=== PATIENT | male | born 1935 | race Caucasian/White ===

== ENCOUNTER 2016-08-03 17:31 | Inpatient (IN) | payer MEDICARE, MEDICAID ==
[~2016-08-03 17:31] MED LIST: ASPIRIN325 MG; GEMFIBROZIL600 MG; HYTRIN10 MG; LASIX20 MG; METAMUCIL1 PKT; MULTIVITAMIN1 TAB; NAPROSYN500 MG; PROSCAR5 MG; STOOL SOFTENER240 MG; ZOCOR10 MG
[2016-08-03 20:26] LABS: ABG CO2 ARTERIAL 39 mmol/L (21-27); ARTERIAL BLD GAS O2 SATURATION 97 % (95-98); ARTERIAL PO2 97 mmHg (70-100); BICARBONATE 37 mmol/L (21-28); BLOOD GAS BASE EXCESS 9 mM/L (-/+3); PH 7.34 Units (7.35-7.45)
[2016-08-03 20:31] LABS: ARTERIAL BLOOD GAS PCO2 72 mmHg (32-45)
[2016-08-03 21:19] LABS: BASO % 0.1 % (0-2); EOS % 0.7 % (0-7); EOSINOPHIL ABSOLUTE COUNT 0.1 tho/cmm (0.0-0.7); HCT-HEMATOCRIT 38.6 % (36.0-53.5); IMMATURE GRANULOCYTES ABSOLUTE 0.03 tho/cmm (0-0.03); IMMATURE GRANULOCYTES PERCENT 0.4 % (0-0.3); LYMPH % 7.1 % (20-45); LYMPH ABSOLUTE COUNT 0.5 tho/cmm (0.8-4.5); MCH (MEAN CORPUSCULAR HGB) 31.3 pg (28.0-32.0); MCHC MEAN CORPUSCULAR HGB CONC 31.1 % (32.0-36.0); MCV (MEAN CELL VOLUME) 100.8 fl (82.0-96.0); MEAN PLATELET VOLUME 9.7 cmc (9.4-12.4); MONO % 1.2 % (0-12); MONOCYTE ABSOLUTE COUNT 0.1 tho/cmm (0.0-1.2); NEUTROPHIL ABSOLUTE COUNT 6.2 tho/cmm (1.6-8.0); NEUTROPHIL-AUTOMATED 6.2 tho/cmm (1.6-8.0); NEUTROPHILS % 90.5 % (40-80); PLATELET COUNT 230 tho/cmm (150-450); RED BLOOD COUNT 3.83 mil/cmm (4.40-5.70); RED CELL DISTRIBUTION WIDTH 14.1 % (12.4-16.4); WHITE BLOOD COUNT 6.9 tho/cmm (4.0-10.0)
[2016-08-03 21:28] LABS: URINE BILIRUBIN NEGATIVE (NEG); URINE BLOOD NEGATIVE (NEG); URINE GLUCOSE (UA) NEGATIVE (NEG); URINE KETONE NEGATIVE (NEG); URINE LEUKOCYTE ESTERASE NEGATIVE (NEG); URINE NITRITE NEGATIVE (NEG); URINE PROTEIN NEGATIVE (NEG)
[2016-08-03 21:38] LABS: ALB/GLOB RATIO 0.7 (0.8-2.0); ALBUMIN 3.2 g/dl (3.5-5.0); ALKALINE PHOSPHATASE 74 U/L (33-138); ALT/SGPT 17 U/L (12-78); BILIRUBIN,TOTAL 0.4 mg/dl (0.0-1.5); BLOOD UREA NITROGEN 22 mg/dl (6-24); CALCIUM 8.4 mg/dl (8.5-10.5); CARBON DIOXIDE-VENOUS 38 mmol/L (22-32); CHLORIDE 94 mmol/l (96-110); GLUCOSE 201 mg/dL (70-110); SODIUM 138 mmol/L (135-145); eGFR VALUE FOR BLACK >90 mL/Min
[2016-08-03 21:44] LABS: ANION GAP 11 mmol/L (0-20); AST/SGOT 27 U/L (10-40); MAGNESIUM 2.4 mg/dl (1.3-2.6); POTASSIUM 4.9 mmol/L (3.7-5.1)
[2016-08-03 21:44] LABS: URINE COLOR YELLOW
[2016-08-03 21:45] LABS: URINE APPEARANCE HAZY
[2016-08-03] MEDS ORDERED: ZEBETA5 M2 PO (22:17)
[2016-08-03] MEDS ORDERED: BISCOLAX10 MG PO (22:17)
[2016-08-03] MEDS ORDERED: ASPIRIN81 M1 PO (22:17)
[2016-08-03] MEDS ORDERED: CARDIZEM CD120 M1 PO (22:18)
[2016-08-03] MEDS ORDERED: OS-CAL 500+D31 EAC1 PO (22:18)
[2016-08-03] MEDS ORDERED: IPRAT-ALBUT 0.5-3 ML AERO NEB (22:20)
[2016-08-03] MEDS ORDERED: ELIQUIS5 M1 PO (22:20)
[2016-08-03] MEDS ORDERED: [UNRECOGNIZED DRUG - CODE] PO (22:21)
[2016-08-03] MEDS ORDERED: LASIX40 M1 PO (22:21)
[2016-08-03] MEDS ORDERED: ATROVENT HFA1 PUFF (22:23)
[2016-08-03] MEDS ORDERED: LANTUS100 UNITS/ SC (22:24)
[2016-08-03] MEDS ORDERED: POTASSIUM CHLO20 ME3 PO (22:24)
[2016-08-03] MEDS ORDERED: CLARITIN10 M6 PO (22:25)
[2016-08-03] MEDS ORDERED: GLUCOPHAGE500 M3 PO (22:25)
[2016-08-03] MEDS ORDERED: MILK OF MAGNESIA PO (22:26)
[2016-08-03] MEDS ORDERED: POLYETHYLENE G255 G1 PO (22:26)
[2016-08-03] MEDS ORDERED: PREDNISONE5 M1 PO (22:27)
[2016-08-03] MEDS ORDERED: PRAVASTATIN SOD10 M1 PO (22:27)
[2016-08-03] MEDS ORDERED: PROVENTIL HFA6.7 G1 AERO NEB (22:28)
[2016-08-03] MEDS ORDERED: ACID CONTROL150 M2 PO (22:28)
[2016-08-03] MEDS ORDERED: SYMBICORT 160-1 PUFF INH (22:29)
[2016-08-03] MEDS ORDERED: SENNA PLUS TAB1 EAC1 PO (22:29)
[2016-08-03] MEDS ORDERED: SYSTANE 0.3-0.1 EACH OP (22:30)
[2016-08-03] MEDS ORDERED: TYLENOL325 M2 PO (22:31)
[2016-08-03 22:38] LABS: ARTERIAL BLD GAS O2 SATURATION 99 % (95-98); ARTERIAL BLOOD GAS PCO2 69 mmHg (32-45); BICARBONATE 37 mmol/L (21-28); BLOOD GAS BASE EXCESS 9 mM/L (-/+3); PH 7.35 Units (7.35-7.45)
[2016-08-03 22:39] LABS: ABG CO2 ARTERIAL 33 mmol/L (21-27); ARTERIAL PO2 158 mmHg (70-100)
[2016-08-04 05:14] LABS: ANION GAP 10 mmol/L (0-20); BLOOD UREA NITROGEN 24 mg/dl (6-24); CALCIUM 8.6 mg/dl (8.5-10.5); CARBON DIOXIDE-VENOUS 39 mmol/L (22-32); CHLORIDE 94 mmol/l (96-110); GLUCOSE 194 mg/dL (70-110); POTASSIUM 4.3 mmol/L (3.7-5.1); SODIUM 139 mmol/L (135-145); eGFR VALUE FOR BLACK >90 mL/Min
[2016-08-04 05:16] LABS: BASO % 0.2 % (0-2); HCT-HEMATOCRIT 39.3 % (36.0-53.5); IMMATURE GRANULOCYTES ABSOLUTE 0.02 tho/cmm (0-0.03); IMMATURE GRANULOCYTES PERCENT 0.3 % (0-0.3); LYMPH ABSOLUTE COUNT 0.6 tho/cmm (0.8-4.5); MCH (MEAN CORPUSCULAR HGB) 30.8 pg (28.0-32.0); MCHC MEAN CORPUSCULAR HGB CONC 30.5 % (32.0-36.0); MONO % 1.2 % (0-12); MONOCYTE ABSOLUTE COUNT 0.1 tho/cmm (0.0-1.2); NEUTROPHILS % 87.3 % (40-80); PLATELET COUNT 252 tho/cmm (150-450); RED BLOOD COUNT 3.89 mil/cmm (4.40-5.70); RED CELL DISTRIBUTION WIDTH 14.1 % (12.4-16.4); WHITE BLOOD COUNT 5.7 tho/cmm (4.0-10.0)
[2016-08-04 05:56] LABS: ARTERIAL BLD GAS O2 SATURATION 99 % (95-98); ARTERIAL PO2 151 mmHg (70-100); BICARBONATE 40 mmol/L (21-28); BLOOD GAS BASE EXCESS 11 mM/L (-/+3); PH 7.29 Units (7.35-7.45)
[2016-08-04 05:59] LABS: ARTERIAL BLOOD GAS PCO2 87 mmHg (32-45)
[2016-08-04 06:01] LABS: ABG CO2 ARTERIAL 43 mmol/L (21-27)
[2016-08-04 07:58] LABS: ABG CO2 ARTERIAL 41 mmol/L (21-27); ARTERIAL BLD GAS O2 SATURATION 96 % (95-98); ARTERIAL PO2 91 mmHg (70-100); BICARBONATE 39 mmol/L (21-28); BLOOD GAS BASE EXCESS 11 mM/L (-/+3); PH 7.36 Units (7.35-7.45)
[2016-08-04 08:01] LABS: ARTERIAL BLOOD GAS PCO2 71 mmHg (32-45)
[2016-08-04 12:20] LABS: ABG CO2 ARTERIAL 41 mmol/L (21-27); ARTERIAL BLD GAS O2 SATURATION 85 % (95-98); ARTERIAL BLOOD GAS PCO2 69 mmHg (32-45); ARTERIAL PO2 54 mmHg (70-100); BICARBONATE 39 mmol/L (21-28); BLOOD GAS BASE EXCESS 11 mM/L (-/+3); PH 7.37 Units (7.35-7.45)
[2016-08-04 14:13] LABS: ARTERIAL BLOOD GAS PCO2 61 mmHg (32-45); BICARBONATE 39 mmol/L (21-28); BLOOD GAS BASE EXCESS 13 mM/L (-/+3); PH 7.42 Units (7.35-7.45)
[2016-08-04 14:14] LABS: ABG CO2 ARTERIAL 41 mmol/L (21-27); ARTERIAL BLD GAS O2 SATURATION 96 % (95-98); ARTERIAL PO2 78 mmHg (70-100)
[2016-08-05 04:40] LABS: HCT-HEMATOCRIT 38.7 % (36.0-53.5); HGB-HEMOGLOBIN 12.2 gm/dl (13.5-17.0); IMMATURE GRANULOCYTES ABSOLUTE 0.02 tho/cmm (0-0.03); IMMATURE GRANULOCYTES PERCENT 0.4 % (0-0.3); LYMPH % 10.2 % (20-45); LYMPH ABSOLUTE COUNT 0.6 tho/cmm (0.8-4.5); MCHC MEAN CORPUSCULAR HGB CONC 31.5 % (32.0-36.0); MCV (MEAN CELL VOLUME) 98.2 fl (82.0-96.0); MEAN PLATELET VOLUME 9.7 cmc (9.4-12.4); MONO % 4.9 % (0-12); MONOCYTE ABSOLUTE COUNT 0.3 tho/cmm (0.0-1.2); NEUTROPHIL ABSOLUTE COUNT 4.6 tho/cmm (1.6-8.0); NEUTROPHIL-AUTOMATED 4.6 tho/cmm (1.6-8.0); NEUTROPHILS % 84.5 % (40-80); PLATELET COUNT 259 tho/cmm (150-450); RED BLOOD COUNT 3.94 mil/cmm (4.40-5.70); RED CELL DISTRIBUTION WIDTH 13.8 % (12.4-16.4); WHITE BLOOD COUNT 5.5 tho/cmm (4.0-10.0)
[2016-08-05 05:03] LABS: ANION GAP 12 mmol/L (0-20); BLOOD UREA NITROGEN 31 mg/dl (6-24); CALCIUM 8.7 mg/dl (8.5-10.5); CARBON DIOXIDE-VENOUS 36 mmol/L (22-32); CHLORIDE 97 mmol/l (96-110); GLUCOSE 237 mg/dL (70-110); POTASSIUM 3.6 mmol/L (3.7-5.1); SODIUM 141 mmol/L (135-145); eGFR VALUE FOR BLACK >90 mL/Min
[2016-08-05 08:59] LABS: ABG CO2 ARTERIAL 37 mmol/L (21-27); ARTERIAL BLD GAS O2 SATURATION 96 % (95-98); ARTERIAL BLOOD GAS PCO2 43 mmHg (32-45); ARTERIAL PO2 82 mmHg (70-100); BICARBONATE 36 mmol/L (21-28); BLOOD GAS BASE EXCESS 12 mM/L (-/+3); PH 7.53 Units (7.35-7.45)
[2016-08-06 04:58] LABS: HCT-HEMATOCRIT 39.7 % (36.0-53.5); HGB-HEMOGLOBIN 12.5 gm/dl (13.5-17.0); IMMATURE GRANULOCYTES ABSOLUTE 0.01 tho/cmm (0-0.03); IMMATURE GRANULOCYTES PERCENT 0.2 % (0-0.3); LYMPH ABSOLUTE COUNT 0.4 tho/cmm (0.8-4.5); MCHC MEAN CORPUSCULAR HGB CONC 31.5 % (32.0-36.0); MCV (MEAN CELL VOLUME) 98.5 fl (82.0-96.0); MEAN PLATELET VOLUME 9.5 cmc (9.4-12.4); MONO % 3.3 % (0-12); MONOCYTE ABSOLUTE COUNT 0.2 tho/cmm (0.0-1.2); NEUTROPHIL ABSOLUTE COUNT 5.4 tho/cmm (1.6-8.0); NEUTROPHIL-AUTOMATED 5.4 tho/cmm (1.6-8.0); NEUTROPHILS % 89.5 % (40-80); PLATELET COUNT 271 tho/cmm (150-450); RED BLOOD COUNT 4.03 mil/cmm (4.40-5.70); RED CELL DISTRIBUTION WIDTH 14.2 % (12.4-16.4)
[2016-08-06 05:04] LABS: ALB/GLOB RATIO 0.7 (0.8-2.0); ALBUMIN 2.8 g/dl (3.5-5.0); ALKALINE PHOSPHATASE 61 U/L (33-138); ALT/SGPT 17 U/L (12-78); ANION GAP 7 mmol/L (0-20); AST/SGOT 18 U/L (10-40); BILIRUBIN,TOTAL 0.3 mg/dl (0.0-1.5); BLOOD UREA NITROGEN 42 mg/dl (6-24); CALCIUM 8.5 mg/dl (8.5-10.5); CARBON DIOXIDE-VENOUS 37 mmol/L (22-32); CHLORIDE 99 mmol/l (96-110); CREATININE 0.86 mg/dl (0.60-1.30); GLUCOSE 262 mg/dL (70-110); POTASSIUM 3.3 mmol/L (3.7-5.1); SODIUM 140 mmol/L (135-145); eGFR VALUE FOR BLACK >90 mL/Min
[2016-08-06 05:26] LABS: TRIGLYCERIDES 340 mg/dl (<149)
[2016-08-06 06:06] LABS: ARTERIAL BLD GAS O2 SATURATION 94 % (95-98); ARTERIAL BLOOD GAS PCO2 47 mmHg (32-45); BICARBONATE 35 mmol/L (21-28); BLOOD GAS BASE EXCESS 11 mM/L (-/+3); PH 7.49 Units (7.35-7.45)
[2016-08-06 06:07] LABS: ABG CO2 ARTERIAL 31 mmol/L (21-27); ARTERIAL PO2 65 mmHg (70-100)
[2016-08-06 06:32] LABS: PROCALCITONIN <0.05 ng/ml (0.05-0.09)
[2016-08-06 14:29] LABS: ABG CO2 ARTERIAL 31 mmol/L (21-27); ARTERIAL BLD GAS O2 SATURATION 95 % (95-98); ARTERIAL BLOOD GAS PCO2 48 mmHg (32-45); BLOOD GAS BASE EXCESS 4 mM/L (-/+3)
[2016-08-06 14:30] LABS: ARTERIAL PO2 78 mmHg (70-100); BICARBONATE 29 mmol/L (21-28)
[2016-08-06 22:46] LABS: BLOOD GAS BASE EXCESS 9 mM/L (-/+3); PH 7.38 Units (7.35-7.45)
[2016-08-06 22:50] LABS: ABG CO2 ARTERIAL 37 mmol/L (21-27); ARTERIAL BLD GAS O2 SATURATION 74 % (95-98); ARTERIAL BLOOD GAS PCO2 61 mmHg (32-45); ARTERIAL PO2 45 mmHg (70-100); BICARBONATE 35 mmol/L (21-28)
[2016-08-07 00:50] LABS: ABG CO2 ARTERIAL 35 mmol/L (21-27); BICARBONATE 34 mmol/L (21-28); BLOOD GAS BASE EXCESS 9 mM/L (-/+3); PH 7.46 Units (7.35-7.45)
[2016-08-07 00:53] LABS: ARTERIAL BLD GAS O2 SATURATION 99 % (95-98); ARTERIAL BLOOD GAS PCO2 48 mmHg (32-45); ARTERIAL PO2 265 mmHg (70-100)
[2016-08-07 04:33] LABS: HCT-HEMATOCRIT 43.5 % (36.0-53.5); HGB-HEMOGLOBIN 13.5 gm/dl (13.5-17.0); IMMATURE GRANULOCYTES ABSOLUTE 0.02 tho/cmm (0-0.03); IMMATURE GRANULOCYTES PERCENT 0.3 % (0-0.3); LYMPH % 5.7 % (20-45); LYMPH ABSOLUTE COUNT 0.4 tho/cmm (0.8-4.5); MCH (MEAN CORPUSCULAR HGB) 30.8 pg (28.0-32.0); MCV (MEAN CELL VOLUME) 99.1 fl (82.0-96.0); MEAN PLATELET VOLUME 9.8 cmc (9.4-12.4); MONO % 5.5 % (0-12); MONOCYTE ABSOLUTE COUNT 0.4 tho/cmm (0.0-1.2); NEUTROPHIL ABSOLUTE COUNT 6.4 tho/cmm (1.6-8.0); NEUTROPHIL-AUTOMATED 6.4 tho/cmm (1.6-8.0); NEUTROPHILS % 88.5 % (40-80); PLATELET COUNT 279 tho/cmm (150-450); RED BLOOD COUNT 4.39 mil/cmm (4.40-5.70); RED CELL DISTRIBUTION WIDTH 14.1 % (12.4-16.4); WHITE BLOOD COUNT 7.2 tho/cmm (4.0-10.0)
[2016-08-07 04:41] LABS: ANION GAP 10 mmol/L (0-20); BLOOD UREA NITROGEN 48 mg/dl (6-24); CALCIUM 8.3 mg/dl (8.5-10.5); CARBON DIOXIDE-VENOUS 35 mmol/L (22-32); CHLORIDE 102 mmol/l (96-110); GLUCOSE 234 mg/dL (70-110); POTASSIUM 3.7 mmol/L (3.7-5.1); SODIUM 143 mmol/L (135-145); eGFR VALUE FOR BLACK >90 mL/Min
[2016-08-07 05:33] LABS: ABG CO2 ARTERIAL 35 mmol/L (21-27); ARTERIAL BLD GAS O2 SATURATION 96 % (95-98); ARTERIAL BLOOD GAS PCO2 45 mmHg (32-45); BICARBONATE 33 mmol/L (21-28); BLOOD GAS BASE EXCESS 9 mM/L (-/+3); PH 7.49 Units (7.35-7.45)
[2016-08-07 05:34] LABS: ARTERIAL PO2 81 mmHg (70-100)
[2016-08-08 03:22] LABS: EOS % 0.1 % (0-7); HCT-HEMATOCRIT 44.6 % (36.0-53.5); HGB-HEMOGLOBIN 14.1 gm/dl (13.5-17.0); IMMATURE GRANULOCYTES ABSOLUTE 0.01 tho/cmm (0-0.03); IMMATURE GRANULOCYTES PERCENT 0.1 % (0-0.3); LYMPH % 10.3 % (20-45); LYMPH ABSOLUTE COUNT 0.8 tho/cmm (0.8-4.5); MCH (MEAN CORPUSCULAR HGB) 31.4 pg (28.0-32.0); MCHC MEAN CORPUSCULAR HGB CONC 31.6 % (32.0-36.0); MCV (MEAN CELL VOLUME) 99.3 fl (82.0-96.0); MEAN PLATELET VOLUME 9.5 cmc (9.4-12.4); MONO % 6.1 % (0-12); MONOCYTE ABSOLUTE COUNT 0.5 tho/cmm (0.0-1.2); NEUTROPHIL ABSOLUTE COUNT 6.2 tho/cmm (1.6-8.0); NEUTROPHIL-AUTOMATED 6.2 tho/cmm (1.6-8.0); NEUTROPHILS % 83.4 % (40-80); PLATELET COUNT 229 tho/cmm (150-450); RED BLOOD COUNT 4.49 mil/cmm (4.40-5.70); RED CELL DISTRIBUTION WIDTH 13.9 % (12.4-16.4); WHITE BLOOD COUNT 7.4 tho/cmm (4.0-10.0)
[2016-08-08 04:00] LABS: ANION GAP 9 mmol/L (0-20); BLOOD UREA NITROGEN 39 mg/dl (6-24); CALCIUM 8.2 mg/dl (8.5-10.5); CARBON DIOXIDE-VENOUS 34 mmol/L (22-32); CHLORIDE 107 mmol/l (96-110); CREATININE 0.92 mg/dl (0.60-1.30); GLUCOSE 313 mg/dL (70-110); POTASSIUM 3.4 mmol/L (3.7-5.1); SODIUM 147 mmol/L (135-145); eGFR VALUE FOR BLACK >90 mL/Min
[2016-08-08 05:36] LABS: ABG CO2 ARTERIAL 33 mmol/L (21-27); ARTERIAL BLD GAS O2 SATURATION 94 % (95-98); ARTERIAL BLOOD GAS PCO2 45 mmHg (32-45); ARTERIAL PO2 73 mmHg (70-100); BICARBONATE 31 mmol/L (21-28); BLOOD GAS BASE EXCESS 7 mM/L (-/+3); PH 7.46 Units (7.35-7.45)
[2016-08-08 14:17] LABS: URINE LEUKOCYTE ESTERASE NEGATIVE (NEG); URINE PROTEIN SMALL (NEG); URINE SPECIFIC GRAVITY 1.015 (1.003-1.030)
[2016-08-08 14:18] LABS: URINE APPEARANCE CLEAR; URINE BILIRUBIN NEGATIVE (NEG); URINE BLOOD MODERATE (NEG); URINE COLOR YELLOW; URINE GLUCOSE (UA) SMALL (NEG); URINE KETONE NEGATIVE (NEG); URINE NITRITE NEGATIVE (NEG)
[2016-08-08 14:34] LABS: URINE AMORPHOUS 1+; URINE EPITHELIAL CELLS RARE /[HPF] (0-10); URINE WBC RARE /[HPF] (0-5)
[2016-08-08 18:24] LABS: PROCALCITONIN <0.05 ng/ml (0.05-0.09)
[2016-08-09 05:20] LABS: ANION GAP 7 mmol/L (0-20); BLOOD UREA NITROGEN 32 mg/dl (6-24); CARBON DIOXIDE-VENOUS 36 mmol/L (22-32); CHLORIDE 112 mmol/l (96-110); CREATININE 0.68 mg/dl (0.60-1.30); POTASSIUM 3.3 mmol/L (3.7-5.1); SODIUM 152 mmol/L (135-145); eGFR VALUE FOR BLACK >90 mL/Min
[2016-08-09 05:25] LABS: EOS % 0.4 % (0-7); HCT-HEMATOCRIT 42.8 % (36.0-53.5); HGB-HEMOGLOBIN 13.1 gm/dl (13.5-17.0); IMMATURE GRANULOCYTES ABSOLUTE 0.01 tho/cmm (0-0.03); IMMATURE GRANULOCYTES PERCENT 0.1 % (0-0.3); LYMPH % 12.6 % (20-45); LYMPH ABSOLUTE COUNT 0.9 tho/cmm (0.8-4.5); MCH (MEAN CORPUSCULAR HGB) 30.8 pg (28.0-32.0); MCHC MEAN CORPUSCULAR HGB CONC 30.6 % (32.0-36.0); MCV (MEAN CELL VOLUME) 100.7 fl (82.0-96.0); MEAN PLATELET VOLUME 9.8 cmc (9.4-12.4); MONO % 7.1 % (0-12); MONOCYTE ABSOLUTE COUNT 0.5 tho/cmm (0.0-1.2); NEUTROPHIL ABSOLUTE COUNT 5.9 tho/cmm (1.6-8.0); NEUTROPHIL-AUTOMATED 5.9 tho/cmm (1.6-8.0); NEUTROPHILS % 79.8 % (40-80); PLATELET COUNT 198 tho/cmm (150-450); RED BLOOD COUNT 4.25 mil/cmm (4.40-5.70); WHITE BLOOD COUNT 7.4 tho/cmm (4.0-10.0)
[2016-08-09 05:35] LABS: GLUCOSE 70 mg/dL (70-110)
[2016-08-09 14:52] LABS: ANION GAP 14 mmol/L (0-20); BLOOD UREA NITROGEN 31 mg/dl (6-24); CALCIUM 8.2 mg/dl (8.5-10.5); CARBON DIOXIDE-VENOUS 29 mmol/L (22-32); CHLORIDE 109 mmol/l (96-110); CREATININE 0.96 mg/dl (0.60-1.30); POTASSIUM 4.1 mmol/L (3.7-5.1); SODIUM 148 mmol/L (135-145); eGFR VALUE FOR BLACK 86 mL/Min
[2016-08-09 14:55] LABS: GLUCOSE 277 mg/dL (70-110)
[2016-08-10 04:19] LABS: EOS % 1.6 % (0-7); EOSINOPHIL ABSOLUTE COUNT 0.1 tho/cmm (0.0-0.7); HCT-HEMATOCRIT 38.2 % (36.0-53.5); HGB-HEMOGLOBIN 11.9 gm/dl (13.5-17.0); IMMATURE GRANULOCYTES ABSOLUTE 0.02 tho/cmm (0-0.03); IMMATURE GRANULOCYTES PERCENT 0.3 % (0-0.3); LYMPH % 15.4 % (20-45); LYMPH ABSOLUTE COUNT 1.2 tho/cmm (0.8-4.5); MCH (MEAN CORPUSCULAR HGB) 30.6 pg (28.0-32.0); MCHC MEAN CORPUSCULAR HGB CONC 31.2 % (32.0-36.0); MCV (MEAN CELL VOLUME) 98.2 fl (82.0-96.0); MEAN PLATELET VOLUME 9.5 cmc (9.4-12.4); MONO % 4.7 % (0-12); MONOCYTE ABSOLUTE COUNT 0.4 tho/cmm (0.0-1.2); NEUTROPHIL ABSOLUTE COUNT 5.9 tho/cmm (1.6-8.0); NEUTROPHIL-AUTOMATED 5.9 tho/cmm (1.6-8.0); PLATELET COUNT 176 tho/cmm (150-450); RED BLOOD COUNT 3.89 mil/cmm (4.40-5.70); RED CELL DISTRIBUTION WIDTH 13.9 % (12.4-16.4); WHITE BLOOD COUNT 7.5 tho/cmm (4.0-10.0)
[2016-08-10 04:20] LABS: BLOOD UREA NITROGEN 25 mg/dl (6-24); CALCIUM 7.7 mg/dl (8.5-10.5); CARBON DIOXIDE-VENOUS 30 mmol/L (22-32); CHLORIDE 107 mmol/l (96-110); CREATININE 0.72 mg/dl (0.60-1.30); SODIUM 144 mmol/L (135-145); eGFR VALUE FOR BLACK >90 mL/Min
[2016-08-10 04:27] LABS: ANION GAP 10 mmol/L (0-20); GLUCOSE 124 mg/dL (70-110)
[2016-08-11 05:44] LABS: ALB/GLOB RATIO 0.8 (0.8-2.0); ALBUMIN 2.6 g/dl (3.5-5.0); ALKALINE PHOSPHATASE 55 U/L (33-138); ALT/SGPT 34 U/L (12-78); ANION GAP 11 mmol/L (0-20); AST/SGOT 20 U/L (10-40); BILIRUBIN,DIRECT 0.1 mg/dl (0.0-0.3); BILIRUBIN,INDIRECT 0.5 mg/dL (0.0-1.0); BILIRUBIN,TOTAL 0.6 mg/dl (0.0-1.5); BLOOD UREA NITROGEN 15 mg/dl (6-24); CALCIUM 7.8 mg/dl (8.5-10.5); CARBON DIOXIDE-VENOUS 30 mmol/L (22-32); CHLORIDE 106 mmol/l (96-110); GLUCOSE 93 mg/dL (70-110); POTASSIUM 3.6 mmol/L (3.7-5.1); SODIUM 143 mmol/L (135-145); eGFR VALUE FOR BLACK >90 mL/Min
[2016-08-12 05:05] LABS: ANION GAP 9 mmol/L (0-20); BLOOD UREA NITROGEN 16 mg/dl (6-24); CALCIUM 8.2 mg/dl (8.5-10.5); CARBON DIOXIDE-VENOUS 34 mmol/L (22-32); CHLORIDE 104 mmol/l (96-110); CREATININE 0.65 mg/dl (0.60-1.30); POTASSIUM 4.3 mmol/L (3.7-5.1); SODIUM 143 mmol/L (135-145); eGFR VALUE FOR BLACK >90 mL/Min
[2016-08-12 05:21] LABS: GLUCOSE 141 mg/dL (70-110)
[2016-08-13 04:06] LABS: EOS % 0.8 % (0-7); EOSINOPHIL ABSOLUTE COUNT 0.1 tho/cmm (0.0-0.7); HCT-HEMATOCRIT 35.9 % (36.0-53.5); HGB-HEMOGLOBIN 11.3 gm/dl (13.5-17.0); IMMATURE GRANULOCYTES ABSOLUTE 0.04 tho/cmm (0-0.03); IMMATURE GRANULOCYTES PERCENT 0.4 % (0-0.3); LYMPH % 11.4 % (20-45); MCH (MEAN CORPUSCULAR HGB) 30.6 pg (28.0-32.0); MCHC MEAN CORPUSCULAR HGB CONC 31.5 % (32.0-36.0); MCV (MEAN CELL VOLUME) 97.3 fl (82.0-96.0); MONO % 7.4 % (0-12); MONOCYTE ABSOLUTE COUNT 0.7 tho/cmm (0.0-1.2); NEUTROPHIL ABSOLUTE COUNT 7.2 tho/cmm (1.6-8.0); NEUTROPHIL-AUTOMATED 7.2 tho/cmm (1.6-8.0); PLATELET COUNT 196 tho/cmm (150-450); RED BLOOD COUNT 3.69 mil/cmm (4.40-5.70); RED CELL DISTRIBUTION WIDTH 13.6 % (12.4-16.4)
[2016-08-13 04:07] LABS: ANION GAP 10 mmol/L (0-20); BLOOD UREA NITROGEN 20 mg/dl (6-24); CALCIUM 8.4 mg/dl (8.5-10.5); CARBON DIOXIDE-VENOUS 33 mmol/L (22-32); CHLORIDE 102 mmol/l (96-110); CREATININE 0.69 mg/dl (0.60-1.30); GLUCOSE 130 mg/dL (70-110); POTASSIUM 4.7 mmol/L (3.7-5.1); SODIUM 140 mmol/L (135-145); eGFR VALUE FOR BLACK >90 mL/Min
[2016-08-14 05:54] LABS: ANION GAP 10 mmol/L (0-20); BLOOD UREA NITROGEN 20 mg/dl (6-24); CALCIUM 8.5 mg/dl (8.5-10.5); CARBON DIOXIDE-VENOUS 35 mmol/L (22-32); CHLORIDE 99 mmol/l (96-110); GLUCOSE 88 mg/dL (70-110); POTASSIUM 4.3 mmol/L (3.7-5.1); SODIUM 140 mmol/L (135-145)
[2016-08-14 05:57] LABS: CREATININE 0.64 mg/dl (0.60-1.30); eGFR VALUE FOR BLACK >90 mL/Min
[2016-08-14 17:33] LABS: ABG CO2 ARTERIAL 38 mmol/L (21-27); ARTERIAL BLD GAS O2 SATURATION 98 % (95-98); ARTERIAL BLOOD GAS PCO2 66 mmHg (32-45); ARTERIAL PO2 106 mmHg (70-100); BICARBONATE 36 mmol/L (21-28); BLOOD GAS BASE EXCESS 9 mM/L (-/+3); PH 7.36 Units (7.35-7.45)
[2016-08-15 03:42] LABS: ABG CO2 ARTERIAL 37 mmol/L (21-27); ARTERIAL BLD GAS O2 SATURATION 95 % (95-98); BICARBONATE 36 mmol/L (21-28); BLOOD GAS BASE EXCESS 11 mM/L (-/+3); PH 7.51 Units (7.35-7.45)
[2016-08-15 03:43] LABS: ARTERIAL BLOOD GAS PCO2 45 mmHg (32-45); ARTERIAL PO2 68 mmHg (70-100)
[2016-08-15 06:17] LABS: ANION GAP 13 mmol/L (0-20); BLOOD UREA NITROGEN 26 mg/dl (6-24); CALCIUM 8.7 mg/dl (8.5-10.5); CARBON DIOXIDE-VENOUS 34 mmol/L (22-32); CHLORIDE 96 mmol/l (96-110); CREATININE 0.82 mg/dl (0.60-1.30); GLUCOSE 112 mg/dL (70-110); POTASSIUM 4.3 mmol/L (3.7-5.1); SODIUM 139 mmol/L (135-145); eGFR VALUE FOR BLACK >90 mL/Min
[2016-08-16 04:56] LABS: HGB-HEMOGLOBIN 11.5 gm/dl (13.5-17.0); IMMATURE GRANULOCYTES ABSOLUTE 0.02 tho/cmm (0-0.03); IMMATURE GRANULOCYTES PERCENT 0.3 % (0-0.3); LYMPH % 5.2 % (20-45); LYMPH ABSOLUTE COUNT 0.4 tho/cmm (0.8-4.5); MCH (MEAN CORPUSCULAR HGB) 30.4 pg (28.0-32.0); MCHC MEAN CORPUSCULAR HGB CONC 31.9 % (32.0-36.0); MCV (MEAN CELL VOLUME) 95.2 fl (82.0-96.0); MEAN PLATELET VOLUME 9.7 cmc (9.4-12.4); MONO % 3.9 % (0-12); MONOCYTE ABSOLUTE COUNT 0.3 tho/cmm (0.0-1.2); NEUTROPHILS % 90.6 % (40-80); PLATELET COUNT 257 tho/cmm (150-450); RED BLOOD COUNT 3.78 mil/cmm (4.40-5.70); RED CELL DISTRIBUTION WIDTH 13.8 % (12.4-16.4); WHITE BLOOD COUNT 7.8 tho/cmm (4.0-10.0)
[2016-08-16 05:11] LABS: ANION GAP 10 mmol/L (0-20); BLOOD UREA NITROGEN 35 mg/dl (6-24); CALCIUM 8.4 mg/dl (8.5-10.5); CARBON DIOXIDE-VENOUS 34 mmol/L (22-32); CHLORIDE 97 mmol/l (96-110); CREATININE 0.97 mg/dl (0.60-1.30); POTASSIUM 3.9 mmol/L (3.7-5.1); SODIUM 137 mmol/L (135-145); eGFR VALUE FOR BLACK 85 mL/Min
[2016-08-16 05:12] LABS: GLUCOSE 266 mg/dL (70-110)
[2016-08-17 03:58] LABS: ANION GAP 8 mmol/L (0-20); BLOOD UREA NITROGEN 37 mg/dl (6-24); CALCIUM 8.2 mg/dl (8.5-10.5); CARBON DIOXIDE-VENOUS 35 mmol/L (22-32); CHLORIDE 98 mmol/l (96-110); CREATININE 0.84 mg/dl (0.60-1.30); GLUCOSE 188 mg/dL (70-110); SODIUM 137 mmol/L (135-145); eGFR VALUE FOR BLACK >90 mL/Min
[2016-08-17 04:05] LABS: POTASSIUM 4.2 mmol/L (3.7-5.1)
[2016-08-17 05:28] LABS: ABG CO2 ARTERIAL 37 mmol/L (21-27); ARTERIAL BLD GAS O2 SATURATION 95 % (95-98); ARTERIAL PO2 87 mmHg (70-100); BICARBONATE 35 mmol/L (21-28); BLOOD GAS BASE EXCESS 6 mM/L (-/+3)
[2016-08-17 05:30] LABS: ARTERIAL BLOOD GAS PCO2 72 mmHg (32-45)
[2016-08-18 03:12] LABS: ANION GAP 8 mmol/L (0-20); BLOOD UREA NITROGEN 31 mg/dl (6-24); CALCIUM 8.2 mg/dl (8.5-10.5); CARBON DIOXIDE-VENOUS 35 mmol/L (22-32); CHLORIDE 102 mmol/l (96-110); CREATININE 0.76 mg/dl (0.60-1.30); GLUCOSE 105 mg/dL (70-110); POTASSIUM 4.3 mmol/L (3.7-5.1); SODIUM 141 mmol/L (135-145); eGFR VALUE FOR BLACK >90 mL/Min
[2016-08-18 04:52] LABS: ABG CO2 ARTERIAL 35 mmol/L (21-27); ARTERIAL BLD GAS O2 SATURATION 98 % (95-98); ARTERIAL BLOOD GAS PCO2 58 mmHg (32-45); BICARBONATE 33 mmol/L (21-28); BLOOD GAS BASE EXCESS 7 mM/L (-/+3); PH 7.38 Units (7.35-7.45)
[2016-08-18 04:54] LABS: ARTERIAL PO2 114 mmHg (70-100)
[2016-08-19 04:07] LABS: ANION GAP 8 mmol/L (0-20); BLOOD UREA NITROGEN 27 mg/dl (6-24); CALCIUM 7.7 mg/dl (8.5-10.5); CARBON DIOXIDE-VENOUS 33 mmol/L (22-32); CHLORIDE 102 mmol/l (96-110); CREATININE 0.77 mg/dl (0.60-1.30); GLUCOSE 123 mg/dL (70-110); POTASSIUM 4.4 mmol/L (3.7-5.1); SODIUM 139 mmol/L (135-145); eGFR VALUE FOR BLACK >90 mL/Min
[2016-08-20 04:25] LABS: ANION GAP 9 mmol/L (0-20); BLOOD UREA NITROGEN 27 mg/dl (6-24); CALCIUM 8.1 mg/dl (8.5-10.5); CARBON DIOXIDE-VENOUS 35 mmol/L (22-32); CHLORIDE 99 mmol/l (96-110); CREATININE 0.79 mg/dl (0.60-1.30); GLUCOSE 178 mg/dL (70-110); POTASSIUM 4.7 mmol/L (3.7-5.1); SODIUM 138 mmol/L (135-145); eGFR VALUE FOR BLACK >90 mL/Min
[2016-08-20] MEDS ORDERED: BROVANA15 MCG/22 NEB (13:25)
[2016-08-20] MEDS ORDERED: COMBIVENT RESPIM4 G1 NEB (13:25)
[2016-08-20] MEDS ORDERED: CARDURA8 M1 PO (13:27)
[2016-08-20] MEDS ORDERED: NITROSTAT0.4 MG/TAB SL (13:28)
[2016-08-20] MEDS ORDERED: CARDIZEM CD240 M1 PO (13:28)
[2016-08-20] MEDS ORDERED: PULMICORT0.5 MG/22 NEB (13:32)
[2016-08-20] MEDS ORDERED: ISOPTO TEARS15 M1 OP ×2 (13:33→13:34)
[2016-08-20] MEDS ORDERED: COLACE100 M1 PO (13:35)
[2016-08-20] MEDS ORDERED: DULCOLAX10 MG PR (13:35)
[2016-08-20] MEDS ORDERED: DELTASONE20 MG PO (13:39)
== END 2016-08-20 15:00 | DRG 207 ==
LOC: CCU 17:31 → PCUB 08-10 19:00
PROVIDERS: Internal Medicine Critical Care Medicine; Internal Medicine Pulmonary Disease; Physician Assistant; Registered Nurse; ADMIT Family Medicine
PROC: 0BH17EZ Insertion of Endotracheal Airway into Trachea, Via Natural or Artificial Opening (ICD-10-PCS; principal; 2016-08-03)
PROC: 5A1955Z Respiratory Ventilation, Greater than 96 Consecutive Hours (ICD-10-PCS; 2016-08-03)
DX: J96.22 Acute and chronic respiratory failure with hypercapnia (principal); J69.0 Pneumonitis due to inhalation of food and vomit; I50.43 Acute on chronic combined systolic (congestive) and diastolic (congestive) heart failure; E46 Unspecified protein-calorie malnutrition; E87.0 Hyperosmolality and hypernatremia; J44.0 Chronic obstructive pulmonary disease with (acute) lower respiratory infection; I48.91 Unspecified atrial fibrillation; I42.9 Cardiomyopathy, unspecified; I27.2 Other secondary pulmonary hypertension; E87.1 Hypo-osmolality and hyponatremia; I69.951 Hemiplegia and hemiparesis following unspecified cerebrovascular disease affecting right dominant side; J44.1 Chronic obstructive pulmonary disease with (acute) exacerbation; H33.20 Serous retinal detachment, unspecified eye; Z66 Do not resuscitate; I11.0 Hypertensive heart disease with heart failure; J96.21 Acute and chronic respiratory failure with hypoxia; K59.09 Other constipation; E78.5 Hyperlipidemia, unspecified; E87.6 Hypokalemia; K21.9 Gastro-esophageal reflux disease without esophagitis; I25.10 Atherosclerotic heart disease of native coronary artery without angina pectoris; F20.9 Schizophrenia, unspecified; I73.9 Peripheral vascular disease, unspecified; E11.9 Type 2 diabetes mellitus without complications; H54.42 Blindness, left eye, normal vision right eye; N40.0 Benign prostatic hyperplasia without lower urinary tract symptoms; R33.9 Retention of urine, unspecified; G47.33 Obstructive sleep apnea (adult) (pediatric); Z99.81 Dependence on supplemental oxygen; Z79.01 Long term (current) use of anticoagulants; Z79.82 Long term (current) use of aspirin; Z79.4 Long term (current) use of insulin; Z23 Encounter for immunization
CPT/HCPCS: C1751; C1758; C9113; G0009; J0295; J0330; J0456; J0696; J1650; J1815; J1940; J1956; J2250; J2543; J2704; J2920; J2930; J3010; J3480; J7050; J7512; Q9967